=== PATIENT | male | born 1990 | race Hispanic/Latino ===

== ENCOUNTER 2020-04-28 07:30 | Emergency (ER) | payer OTHER ==
[2020-04-28] MEDS ORDERED: ONDANSETRON HCL 4 MG/2 ML VIAL ONE (08:44)
[2020-04-28] MEDS ORDERED: MORPHINE SULFATE 4 MG/1ML SYG ONE (08:44)
== END 2020-04-28 11:23 | disposition home or self-care (01) ==
LOC: EDH 07:30
DX: N20.0 Calculus of kidney (principal); U07.1 COVID-19; J12.89 Other viral pneumonia
CPT/HCPCS: 36415; 71045; 74176; 80053; 81001; 83690; 85025; 96374; 96375; 99285; J2270; J2405